=== PATIENT | female | born 1935 | race African-American/Black ===

== ENCOUNTER 2016-06-27 12:19 | Emergency (ER) | payer MEDICARE, OTHER ==
[~2016-06-27] VITALS: Ht 165.1 cm; Wt 60.0 kg
[~2016-06-27 12:19] MED LIST: DONE10TA14 PO; KCL20 PO; LASI20TA PO; LORTA5 PO
[2016-06-27 12:31] VITALS: BP 135/65; PULSE 95; RESP 18; TEMP 99.3; O2SAT 100
[2016-06-27 12:39] VITALS: RESP 18; O2SAT 100
--- NOTE | 2016-06-27 12:40 | PD ---
HPI Chief Complaint: Altered Mental Status Time Seen by Provider: 12:39 Travel History International Travel<30 days: No Contact w/Intl Traveler<30days: No Traveled to known affect area: No History of Present Illness HPI 80-year-old female with history of dementia isn't emergency department by [facility] for evaluation of altered mental status. Patient resides with a roommate who became concerned when the patient was unable to ambulate today. Patient is a poor historian. Tells me that her legs hurt. Denies any other pain. Denies being recently ill. I do not have any source of information here in the emergency department at this time, there for history of present illness. Limited. 1630 patient's family is at bedside. They tell me that the patient has history of dementia and she is at her baseline. He told me over the last week she had seemed more confused and they went to her primary care provider 2 days ago when she was diagnosed with a UTI and started on Cipro. She has only had 1 dose this. The tell me that she always has leg pain. She has had one hip replacement and was supposed to have another but it never happened. They tell me that she never ambulates without assistance. They tell me that her lower extremities are typically swollen and this is not new for her either. 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 ABDOMINAL MASS) Gynecologic Surgery: Yes (HYSTERECTOMY) Other Surgery: Yes Social History Alcohol Use: No Tobacco Use: No Substance Use: No Allergies-Medications (Allergen,Severity, Reaction): Coded Allergies: No Known Allergies (Unverified , 06/27/16) Reported Meds & Prescriptions Reported Meds & Active Scripts Active Kcl 20 Meq Tab (Potassium Chloride) 20 Meq Tabcr 20 Meq PO DAILY 30 Days Lasix (Furosemide) 20 Mg Tab 1 Tab PO DAILY [place] 5/325 (Hydrocodone/Acetaminophen 5/325) 5 mg/325 mg Tab 1 Tab PO Q6H PRN Reported Donepezil 10 mg 10 Mg Tab 1 Tab PO DAILY Review of Systems ROS Limitations: Poor Historian Except as stated in HPI: all other systems reviewed are Neg Physical Exam Narrative GENERAL: Pleasant, well-nourished elderly female patient, sitting in bed in no acute distress. SKIN: Warm and dry. HEAD: Atraumatic. Normocephalic. EYES: Pupils equal and round. No scleral icterus. No injection or drainage. ENT: No nasal bleeding or discharge. Mucous membranes pink and moist. NECK: Trachea midline. No JVD. CARDIOVASCULAR: Elevated rate and rhythm. No murmur appreciated. RESPIRATORY: No accessory muscle use. Clear to auscultation. Breath sounds equal bilaterally. GASTROINTESTINAL: Abdomen soft, non-tender, nondistended. Hepatic and splenic margins not palpable. MUSCULOSKELETAL: No obvious deformities. No clubbing. No cyanosis. 2+ lower extremity edema bilateral NEUROLOGICAL: Awake and alert. Oriented to self and place. No obvious cranial nerve deficits. Motor grossly within normal limits. Patient is not wearing her dentures and it is difficult to understand everything she is saying. Data Data Last Documented VS Vital Signs Date Time Temp Pulse Resp B/P Pulse Ox O2 Delivery O2 Flow Rate FiO2 06/27/16 16:13 83 16 130/63 99 Room Air 06/27/16 12:31 99.3 Orders Electrocardiogram (06/27/16 12:33) Complete Blood Count With Diff (06/27/16 12:33) Comprehensive Metabolic Panel (06/27/16 12:33) Prothrombin Time / Inr (Pt) (06/27/16 12:33) Act Partial Throm Time (Ptt) (06/27/16 12:33) Lactic Acid Sepsis Protocol (06/27/16 12:33) Magnesium (Mg) (06/27/16 12:33) Ckmb (Isoenzyme) Profile (06/27/16 12:33) Troponin I (06/27/16 12:33) Urinalysis - C+S If Indicated (06/27/16 12:33) Influenzae A/B Antigen (06/27/16 12:33) Blood Culture (06/27/16 12:33) Chest, Single Ap (06/27/16 12:33) Blood Glucose (06/27/16 12:33) Ecg Monitoring (06/27/16 12:33) Iv Access Insert/Monitor (06/27/16 12:33) Oximetry (06/27/16 12:33) Oxygen Administration (06/27/16 12:33) Ct Brain W/O Iv Contrast(Rout) (06/27/16 12:33) B-Type Natriuretic Peptide (06/27/16 12:33) CKMB (06/27/16 12:35) CKMB% (06/27/16 12:35) Cath For Specimen (06/27/16 14:32) Ceftriaxone Inj (Rocephin Inj) (06/27/16 14:45) Sodium Chlorid 0.9% 500 Ml Inj (Ns 500 M (06/27/16 14:45) Urine Culture (06/27/16 14:50) Labs Laboratory Tests Test 06/27/16 06/27/16 12:35 14:50 White Blood Count 10.4 TH/MM3 Red Blood Count 3.75 MIL/MM3 Hemoglobin 11.9 GM/DL Hematocrit 35.6 % Mean Corpuscular Volume 95.1 FL Mean Corpuscular Hemoglobin 31.7 PG Mean Corpuscular Hemoglobin 33.3 % Concent Red Cell Distribution Width 14.3 % Platelet Count 179 TH/MM3 Mean Platelet Volume 8.1 FL Neutrophils (%) (Auto) 88.4 % Lymphocytes (%) (Auto) 4.0 % Monocytes (%) (Auto) 7.2 % Eosinophils (%) (Auto) 0.1 % Basophils (%) (Auto) 0.3 % Neutrophils # (Auto) 9.2 TH/MM3 Lymphocytes # (Auto) 0.4 TH/MM3 Monocytes # (Auto) 0.8 TH/MM3 Eosinophils # (Auto) 0.0 TH/MM3 Basophils # (Auto) 0.0 TH/MM3 CBC Comment DIFF FINAL Differential Comment Prothrombin Time 12.0 SEC Prothromb Time International 1.1 RATIO Ratio Activated Partial 23.9 SEC Thromboplast Time Sodium Level 136 MEQ/L Potassium Level 3.5 MEQ/L Chloride Level 101 MEQ/L Carbon Dioxide Level 24.5 MEQ/L Anion Gap 11 MEQ/L Blood Urea Nitrogen 16 MG/DL Creatinine 0.56 MG/DL Estimat Glomerular Filtration 126 ML/MIN Rate Random Glucose 148 MG/DL Lactic Acid Level 1.2 mmol/L Calcium Level 9.1 MG/DL Magnesium Level 2.1 MG/DL Total Bilirubin 0.7 MG/DL Aspartate Amino Transf 20 U/L (AST/SGOT) Alanine Aminotransferase 25 U/L (ALT/SGPT) Alkaline Phosphatase 90 U/L Total Creatine Kinase 251 U/L Creatine Kinase MB 1.0 NG/ML Creatine Kinase MB % 0.4 % Troponin I LESS THAN 0.02 NG/ML B-Type Natriuretic Peptide 26 PG/ML Total Protein 8.2 GM/DL Albumin 4.1 GM/DL Urine Color YELLOW Urine Turbidity CLEAR Urine pH 5.5 Urine Specific [place] 1.020 Urine Protein TRACE mg/dL Urine Glucose (UA) NEG mg/dL Urine Ketones 10 mg/dL Urine Occult Blood SMALL Urine Nitrite NEG Urine Bilirubin NEG Urine Urobilinogen LESS THAN 2.0 MG/DL Urine Leukocyte Esterase TRACE Urine RBC 6 /hpf Urine WBC 3 /hpf Urine Squamous Epithelial <1 /hpf Cells Urine Bacteria RARE /hpf Urine Mucus MOD /lpf Microscopic Urinalysis Comment CATH-CULTURE IND MDM Medical Decision Making Medical Screen Exam Complete: Yes Emergency Medical Condition: Yes Medical Record Reviewed: Yes Differential Diagnosis Dementia versus UTI versus urosepsis versus electrolyte abnormality Narrative Course 80-year-old female presents to the emergency department for evaluation. Patient appears without distress. Her vital signs are stable. She is afebrile. CT imaging of the brain shows left maxillary sinus disease and no intracranial abnormality. Chest x-rays without acute cardiopulmonary disease. CBC is without leukocytosis but there is slight neutrophilia of 9.2. CMP is without acute concern. Lactic acid 1.2. BNP is 26. Troponins less than 0.02. After family arrived at bedside and I was unable to better put together the patient's history, patient is given IV antibiotics for UTI. I discussed with attending physician Dr. Randall who agrees the patient can be discharged home if she is her typical baseline and her family's willing to take her home. I discussed this with family and they're concerned that she will not take her medication as the pills are large. I have suggested different ways of administrating and they're willing to try this. They agree to return immediately with any acute worsening of symptoms. Diagnosis Primary Impression: Altered mental status Qualified Code: R41.82 - Altered mental status, unspecified altered mental status type Additional Impressions: UTI (urinary tract infection) Qualified Code: N39.0 - Urinary tract infection without hematuria, site unspecified Dementia Qualified Code: F03.90 - Dementia without behavioral disturbance, unspecified dementia type Referrals: Primary Care Physician Patient Instructions: General Instructions, Urinary Tract Infection in Women ( ED) Additional Instructions: Follow up with your primary care provider Continue antibiotics as directed. Take until they are all gone Return to ED with acute worsening of symptoms Med/Other Pt SpecificInfo: No Change to Meds Disposition: 01 DISCHARGE HOME Condition: Stable Sapna Martini Jun 27, 2016 12:39
--- NOTE | 2016-06-27 13:07 | RADRPT ---
EXAM DATE/TIME: 06/27/2016 12:51 [facility] COMPARISON: CT BRAIN W/O CONTRAST, January 06, 2014, 13:21. INDICATIONS : Altered mental status and unsteady gait today. RADIATION DOSE: 32.66 CTDIvol (mGy) MEDICAL HISTORY : Non-responsive. SURGICAL HISTORY : Hysterectomy. ENCOUNTER: Initial ACUITY: 1 day PAIN SCALE: 0/10 LOCATION: cranial TECHNIQUE: Multiple contiguous axial images were obtained of the head. Using automated exposure control and adj ustment of the mA and/or kV according to patient size, radiation dose was kept as low as reasonably a chievable to obtain optimal diagnostic quality images. FINDINGS: CEREBRUM: The ventricles are normal for age. No evidence of midline shift, mass lesion, hemorrhage or acute in farction. No extra-axial fluid collections are seen. POSTERIOR FOSSA: The cerebellum and brainstem are intact. The 4th ventricle is midline. The cerebellopontine angle i s unremarkable. EXTRACRANIAL: The visualized portion of the orbits is intact. There is a bubbly air-fluid level seen within the lef t maxillary sinus consistent with acute infection. SKULL: The calvaria is intact. No evidence of skull fracture. CONCLUSION: Left maxillary sinus disease consistent with acute infection. No intracranial abnormality seen. Vickie Auguste MD on June 27, 2016 at 13:04 Board Certified Radiologist. This report was verified electronically.
--- NOTE | 2016-06-27 13:16 | RADRPT ---
EXAM DATE/TIME: 06/27/2016 13:00 [facility] COMPARISON: CHEST SINGLE AP, March 13, 2015, 12:43. INDICATIONS : AMS. Shortness of breath. MEDICAL HISTORY : None. SURGICAL HISTORY : None. ENCOUNTER: Initial ACUITY: 1 day PAIN SCORE: 0/10 LOCATION: chest FINDINGS: A single view of the chest demonstrates the lungs to be symmetrically aerated without evidence of mas s, infiltrate or effusion. The cardiomediastinal contours are unremarkable. Osseous structures are osteopenic but intact. CONCLUSION: No acute disease. Vickie Auguste MD on June 27, 2016 at 13:14 Board Certified Radiologist. This report was verified electronically.
[2016-06-27 13:18] LABS: AUTOMATED NEUTROPHIL # 9.2 TH/MM3 (1.8-7.7); BASOPHIL % 0.3 % (0.0-2.0); EOSINOPHIL % 0.1 % (0.0-4.0); HEMATOCRIT 35.6 % (35.0-46.0); HEMO FLAGS DIFF FINAL; LYMPHOCYTE # 0.4 TH/MM3 (1.0-4.8); MEAN CELL VOLUME 95.1 FL (80.0-100.0); MEAN CORPUSCULAR HEMOGLOBIN 31.7 PG (27.0-34.0); MEAN CORPUSCULAR HGB CONC 33.3 % (32.0-36.0); MONO % 7.2 % (0.0-8.0); NEUT % 88.4 % (16.0-70.0); PLATELET COUNT 179 TH/MM3 (150-450); RED BLOOD COUNT 3.75 MIL/MM3 (4.00-5.30); RED CELL DISTRIBUTION WIDTH 14.3 % (11.6-17.2); WHITE BLOOD COUNT 10.4 TH/MM3 (4.0-11.0)
[2016-06-27 13:29] LABS: APTT (PATIENT) 23.9 SEC (24.3-30.1); INTERNATIONAL NORMALIZED RATIO 1.1 RATIO
[2016-06-27 13:45] LABS: ANION GAP 11 MEQ/L (5-15); AST (GOT) 20 U/L (15-37); BICARBONATE 24.5 MEQ/L (21.0-32.0); BLOOD UREA NITROGEN 16 MG/DL (7-18); CHLORIDE 101 MEQ/L (98-107); GLOMERULAR FILTRATION RATE 126 ML/MIN (>89); MAGNESIUM 2.1 MG/DL (1.5-2.5); POTASSIUM 3.5 MEQ/L (3.5-5.1); SODIUM (NA) 136 MEQ/L (136-145)
[2016-06-27 13:49] LABS: ALKALINE PHOSPHATASE 90 U/L (45-117); ALT (GPT) 25 U/L (10-53); CREATINE KINASE 251 U/L (26-192); TOTAL BILIRUBIN ADULT 0.7 MG/DL (0.2-1.0)
[2016-06-27] MEDS ORDERED: cefTRIAXone INJ 1,000 MG in SODIUM CHLORIDE 0.9% INJ 100 ML IV ONE (14:45)
[2016-06-27] MEDS ORDERED: SODIUM CHLORID 0.9% 500 ML INJ 500 ML IV ONE (14:45)
[2016-06-27 15:37] LABS: BACTERIA, URINE RARE /hpf; BLOOD, URINE SMALL (NEG); GLUCOSE,URINE NEG (NEG); KETONE, URINE 10 mg/dL (NEG); MUCUS URINE MOD /lpf (OCC); NITRITE,URINE NEG (NEG); PH, URINE 5.5 (5.0-8.5); SQUAMOUS EPITHELIAL CELL URINE <1 /hpf (0-5); URINE COLOR YELLOW (YELLW/STRAW)
[2016-06-27 15:38] LABS: COMMENT (UR) CATH-CULTURE IND; CULTURE IF INDICATED CATH CULTURE IND
[2016-06-27 16:13] VITALS: BP 130/63; PULSE 83; RESP 16; O2SAT 99
--- NOTE | 2016-06-28 15:11 | EKG ---
Date Performed: 06/27/2016 Time Performed: 12:41:23 PTAGE: 80 years EKG: Sinus rhythm Since previous tracing, no significant change noted NORMAL ECG PREVIOUS TRACING : 01/06/14 12.56.24 DOCTOR: Huber Lucas Interpretating Date/Time 06/28/2016 15:11:33
== END 2016-06-27 17:41 | disposition home or self-care (01) ==
LOC: NEPC 12:19
DX: N39.0 Urinary tract infection, site not specified (principal); R41.82 Altered mental status, unspecified; F03.90 Unspecified dementia, unspecified severity, without behavioral disturbance, psychotic disturbance, mood disturbance, and anxiety; M79.604 Pain in right leg; M79.605 Pain in left leg; R60.0 Localized edema
CPT/HCPCS: 70450; 71010; 80053; 81001; 82550; 82552; 83605; 83735; 83880; 84484; 85025; 85610; 85730; 87040; 87086; 87804; 93005; 96365; 96366; 99285; J0696; J7040; P9612

== ENCOUNTER 2016-07-06 12:37 | Inpatient (IN) | payer OTHER, MEDICARE ==
[2016-07-06] VITALS (8 sets, daily range): BP systolic 113–159; BP diastolic 53–83; PULSE 73–95; RESP 14–19; TEMP 96–99.6; O2SAT 96–100
--- NOTE | 2016-07-06 13:43 | PD ---
HPI Chief Complaint: Musculoskeletal Complaint Time Seen by Provider: 13:20 Travel History International Travel<30 days: No Contact w/Intl Traveler<30days: No History of Present Illness HPI Patient is an 80-year-old female brought in by EMS for evaluation of left lower leg deformity after patient was found on the floor in her home. EMS states the family heard her fall at approximately 11:30 12:00 this morning. Patient does not ambulate on her own normally. She was found sitting on the side of the bed upright, her left lower leg has a deformity at the ankle. Patient has a history of dementia and is a poor historian, family is not present currently. Information obtained from EMS. 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 ABDOMINAL MASS) Gynecologic Surgery: Yes (HYSTERECTOMY) Other Surgery: Yes Social History Alcohol Use: No Tobacco Use: No Substance Use: No Allergies-Medications (Allergen,Severity, Reaction): Coded Allergies: No Known Allergies (Unverified , 07/06/16) Reported Meds & Prescriptions Reported Meds & Active Scripts Active Kcl 20 Meq Tab (Potassium Chloride) 20 Meq Tabcr 20 Meq PO DAILY 30 Days Lasix (Furosemide) 20 Mg Tab 1 Tab PO DAILY [place] 5-325 mg (Hydrocodone-Acetaminophen 5-325 mg) 5 mg/325 mg Tab 1 Tab PO Q6H PRN Reported Donepezil 10 mg 10 Mg Tab 1 Tab PO DAILY Review of Systems ROS Limitations: Poor Historian Except as stated in HPI: all other systems reviewed are Neg Musculoskeletal: Positive: Pain (left lower leg) Physical Exam Narrative GENERAL: Well-developed, well-nourished, elderly female. She comfortably in no acute distress. SKIN: Focused skin assessment warm/dry. HEAD: Atraumatic. Normocephalic. EYES: Pupils equal and round. No scleral icterus. No injection or drainage. ENT: No nasal bleeding or discharge. Mucous membranes pink and moist. NECK: Trachea midline. No JVD. CARDIOVASCULAR: Regular rate and rhythm. No murmur appreciated. RESPIRATORY: No accessory muscle use. Clear to auscultation. Breath sounds diminished in bases. GASTROINTESTINAL: Abdomen soft, non-tender, nondistended. Hepatic and splenic margins not palpable. MUSCULOSKELETAL: Obvious deformity to left lower leg just proximal to the ankle and a positive pedal pulse, 2+ edema in the left foot. NEUROLOGICAL: Awake and alert to self. No obvious cranial nerve deficits, Baseline dementia. Motor grossly within normal limits. Normal speech. PSYCHIATRIC: Appropriate mood and affect; insight and judgment impaired. Data Data Last Documented VS Vital Signs Date Time Temp Pulse Resp B/P Pulse Ox O2 Delivery O2 Flow Rate FiO2 07/06/16 14:01 92 16 157/83 98 07/06/16 14:01 99.6 07/06/16 14:01 Room Air Orders Ankle, Complete ([id number]) (07/06/16 ) Tibia/Fibula (Ap/Lat) (07/06/16 ) Complete Blood Count With Diff (07/06/16 13:25) Comprehensive Metabolic Panel (07/06/16 13:25) Prothrombin Time / Inr (Pt) (07/06/16 13:25) Act Partial Throm Time (Ptt) (07/06/16 13:25) Lactic Acid Sepsis Protocol (07/06/16 13:25) Urinalysis - C+S If Indicated (07/06/16 13:25) Iv Access Insert/Monitor (07/06/16 13:25) Windows Consultant / Telemetry CHINO.Q8H (07/06/16 13:25) Oximetry (07/06/16 13:25) Ondansetron Inj (Zofran Inj) (07/06/16 14:45) Morphine Inj (Morphine Inj) (07/06/16 14:45) Tibia/Fibula (Ap/Lat) (07/06/16 ) Consult Orthopedic (07/06/16 ) Diet Npo (07/07/16 Breakfast) Fiberglass Short Leg Splint Ad (07/06/16 ) Fiberglass Sugartong Sp Ad Sl (07/06/16 ) Ice Cuff (07/06/16 ) Admit Order (Ed Use Only) (07/06/16 15:29) Labs Laboratory Tests Test 07/06/16 13:45 White Blood Count 7.9 TH/MM3 Red Blood Count 3.73 MIL/MM3 Hemoglobin 11.8 GM/DL Hematocrit 35.0 % Mean Corpuscular Volume 93.8 FL Mean Corpuscular Hemoglobin 31.5 PG Mean Corpuscular Hemoglobin 33.6 % Concent Red Cell Distribution Width 14.5 % Platelet Count 240 TH/MM3 Mean Platelet Volume 8.5 FL Neutrophils (%) (Auto) 89.3 % Lymphocytes (%) (Auto) 4.3 % Monocytes (%) (Auto) 5.9 % Eosinophils (%) (Auto) 0.1 % Basophils (%) (Auto) 0.4 % Neutrophils # (Auto) 7.1 TH/MM3 Lymphocytes # (Auto) 0.3 TH/MM3 Monocytes # (Auto) 0.5 TH/MM3 Eosinophils # (Auto) 0.0 TH/MM3 Basophils # (Auto) 0.0 TH/MM3 CBC Comment DIFF FINAL Differential Comment Prothrombin Time 11.6 SEC Prothromb Time International 1.0 RATIO Ratio Activated Partial 20.1 SEC Thromboplast Time Sodium Level 140 MEQ/L Potassium Level 5.4 MEQ/L Chloride Level 103 MEQ/L Carbon Dioxide Level 28.8 MEQ/L Anion Gap 8 MEQ/L Blood Urea Nitrogen 16 MG/DL Creatinine 0.71 MG/DL Estimat Glomerular Filtration 96 ML/MIN Rate Random Glucose 129 MG/DL Lactic Acid Level 1.9 mmol/L Calcium Level 9.1 MG/DL Total Bilirubin 0.5 MG/DL Aspartate Amino Transf 32 U/L (AST/SGOT) Alanine Aminotransferase 24 U/L (ALT/SGPT) Alkaline Phosphatase 78 U/L Total Protein 8.1 GM/DL Albumin 4.0 GM/DL MDM Medical Decision Making Medical Screen Exam Complete: Yes Emergency Medical Condition: Yes Interpretation(s) Vital Signs Date Time Temp Pulse Resp B/P Pulse Ox O2 Delivery O2 Flow Rate FiO2 07/06/16 14:01 92 16 157/83 98 07/06/16 14:01 99.6 92 16 157/83 98 07/06/16 14:01 98 Room Air 07/06/16 13:57 99.6 92 16 157/83 98 Differential Diagnosis Fracture versus UTI versus sepsis versus other Narrative Course Patient is an 80-year-old female presenting to the emergency room for evaluation of a deformity to the left lower leg. Patient had a mechanical fall at home, per EMS report family was there and patient was found sitting on the side of the bed upright. Patient is alert and oriented to self. Dementia at baseline. Patient's vital signs are stable, there is an obvious deformity to left lower extremity, he is neurovascularly intact at this time. Imaging ordered and pending. X-ray of the left ankle shows a distal tib-fib fracture. Mazin LINO for Dr. Sinha return page, he recommended patient be admitted to medicine, be kept nothing by mouth after midnight for OR tomorrow. He stated they would round early in the morning and he needed an up-to-date family contact number to obtain consent for the surgical procedure tomorrow. [facility] placed splint on left lower extremity with the help of my attending physician, please see alternate provider note. [facility] paged for admission Dr. Aguilar accepted admission. Diagnosis Primary Impression: Tibia/fibula fracture Qualified Code: S82.202A - Tibia/fibula fracture, left, closed, initial encounter Additional Impression: Dementia Qualified Code: F03.90 - Dementia without behavioral disturbance, unspecified dementia type Admitting Information Admitting Physician Requests: Admit Condition: Stable Coni Zavaleta [facility] Jul 06, 2016 13:43
[2016-07-06 14:07] LABS: AUTOMATED NEUTROPHIL # 7.1 TH/MM3 (1.8-7.7); BASOPHIL % 0.4 % (0.0-2.0); EOSINOPHIL % 0.1 % (0.0-4.0); HEMO FLAGS DIFF FINAL; LYMPH % 4.3 % (9.0-44.0); LYMPHOCYTE # 0.3 TH/MM3 (1.0-4.8); MEAN CELL VOLUME 93.8 FL (80.0-100.0); MEAN CORPUSCULAR HEMOGLOBIN 31.5 PG (27.0-34.0); MEAN CORPUSCULAR HGB CONC 33.6 % (32.0-36.0); MONO % 5.9 % (0.0-8.0); NEUT % 89.3 % (16.0-70.0); PLATELET COUNT 240 TH/MM3 (150-450); RED BLOOD COUNT 3.73 MIL/MM3 (4.00-5.30); RED CELL DISTRIBUTION WIDTH 14.5 % (11.6-17.2); WHITE BLOOD COUNT 7.9 TH/MM3 (4.0-11.0)
[2016-07-06 14:24] LABS: PROTHROMBIN TIME - PATIENT 11.6 SEC (9.8-11.6)
[2016-07-06 14:25] LABS: APTT (PATIENT) 20.1 SEC (24.3-30.1)
[2016-07-06 14:26] LABS: ALKALINE PHOSPHATASE 78 U/L (45-117); TOTAL BILIRUBIN ADULT 0.5 MG/DL (0.2-1.0)
[2016-07-06 14:31] LABS: ALT (GPT) 24 U/L (10-53); ANION GAP 8 MEQ/L (5-15); AST (GOT) 32 U/L (15-37); BICARBONATE 28.8 MEQ/L (21.0-32.0); BLOOD UREA NITROGEN 16 MG/DL (7-18); CHLORIDE 103 MEQ/L (98-107); GLOMERULAR FILTRATION RATE 96 ML/MIN (>89); POTASSIUM 5.4 MEQ/L (3.5-5.1); SODIUM (NA) 140 MEQ/L (136-145)
[2016-07-06] MEDS ORDERED: ONDANSETRON HCL 4 MG/2 ML VIAL IV ONE (14:45)
[2016-07-06] MEDS ORDERED: MORPHINE SULFATE 4 MG/ML INJ IV PUSH ONE (14:45)
--- NOTE | 2016-07-06 14:56 | PD ---
Data Data Last Documented VS Vital Signs Date Time Temp Pulse Resp B/P Pulse Ox O2 Delivery O2 Flow Rate FiO2 07/06/16 14:01 92 16 157/83 98 07/06/16 14:01 99.6 07/06/16 14:01 Room Air Orders Ankle, Complete ([id number]) (07/06/16 ) Tibia/Fibula (Ap/Lat) (07/06/16 ) Complete Blood Count With Diff (07/06/16 13:25) Comprehensive Metabolic Panel (07/06/16 13:25) Prothrombin Time / Inr (Pt) (07/06/16 13:25) Act Partial Throm Time (Ptt) (07/06/16 13:25) Lactic Acid Sepsis Protocol (07/06/16 13:25) Urinalysis - C+S If Indicated (07/06/16 13:25) Iv Access Insert/Monitor (07/06/16 13:25) Senior Ruby Developer / Telemetry CHINO.Q8H (07/06/16 13:25) Oximetry (07/06/16 13:25) Ondansetron Inj (Zofran Inj) (07/06/16 14:45) Morphine Inj (Morphine Inj) (07/06/16 14:45) Tibia/Fibula (Ap/Lat) (07/06/16 ) Consult Orthopedic (07/06/16 ) Diet Npo (07/07/16 Breakfast) Fiberglass Short Leg Splint Ad (07/06/16 ) Fiberglass Sugartong Sp Ad Sl (07/06/16 ) Ice Cuff (07/06/16 ) Admit Order (Ed Use Only) (07/06/16 15:29) Labs Laboratory Tests Test 07/06/16 13:45 White Blood Count 7.9 TH/MM3 Red Blood Count 3.73 MIL/MM3 Hemoglobin 11.8 GM/DL Hematocrit 35.0 % Mean Corpuscular Volume 93.8 FL Mean Corpuscular Hemoglobin 31.5 PG Mean Corpuscular Hemoglobin 33.6 % Concent Red Cell Distribution Width 14.5 % Platelet Count 240 TH/MM3 Mean Platelet Volume 8.5 FL Neutrophils (%) (Auto) 89.3 % Lymphocytes (%) (Auto) 4.3 % Monocytes (%) (Auto) 5.9 % Eosinophils (%) (Auto) 0.1 % Basophils (%) (Auto) 0.4 % Neutrophils # (Auto) 7.1 TH/MM3 Lymphocytes # (Auto) 0.3 TH/MM3 Monocytes # (Auto) 0.5 TH/MM3 Eosinophils # (Auto) 0.0 TH/MM3 Basophils # (Auto) 0.0 TH/MM3 CBC Comment DIFF FINAL Differential Comment Prothrombin Time 11.6 SEC Prothromb Time International 1.0 RATIO Ratio Activated Partial 20.1 SEC Thromboplast Time Sodium Level 140 MEQ/L Potassium Level 5.4 MEQ/L Chloride Level 103 MEQ/L Carbon Dioxide Level 28.8 MEQ/L Anion Gap 8 MEQ/L Blood Urea Nitrogen 16 MG/DL Creatinine 0.71 MG/DL Estimat Glomerular Filtration 96 ML/MIN Rate Random Glucose 129 MG/DL Lactic Acid Level 1.9 mmol/L Calcium Level 9.1 MG/DL Total Bilirubin 0.5 MG/DL Aspartate Amino Transf 32 U/L (AST/SGOT) Alanine Aminotransferase 24 U/L (ALT/SGPT) Alkaline Phosphatase 78 U/L Total Protein 8.1 GM/DL Albumin 4.0 GM/DL MDM Supervised Visit with SHAYNE: Yes Procedures Procedure Narrative This is a note to document fracture reduction. This patient has a fracture of the left distal tibia and fibula. They are displaced and angulated. I discussed the procedure with the patient and she provides verbal consent. I gave her injection of morphine and Zofran She did not require formal conscious sedation After the medication was given, I applied steady distal traction to the foot and lower tibia. An conventions assistant helped stabilize the proximal tibia. I straightened out the tibia as best as possible Afterwards patient had excellent pulse and sensation and cap refill Procedure was tolerated well Placed her in a combination sugar tong and posterior short-leg splint Ordering a post reduction film I have reviewed the films. Maybe some minor improvement but not a whole lot of movement It has been stabilized in a splint and will be admitted for operative repair tomorrow morning Esau Kwok MD Jul 06, 2016 14:56
--- NOTE | 2016-07-06 15:37 | RADRPT ---
EXAM DATE/TIME: 07/06/2016 14:11 [facility] COMPARISON: No previous studies available for comparison. INDICATIONS : Fell today. MEDICAL HISTORY : None. SURGICAL HISTORY : None. ENCOUNTER: Initial ACUITY: 1 day PAIN SCORE: Non-responsive. LOCATION: Left tib/fib FINDINGS: There is a fracture of the distal tibia and fibula with moderate angulation. There is also a fractur e of the proximal fibula as well. Bones are diffusely osteoporotic. CONCLUSION: 1. Fractures as described above. 2. Bones are diffusely osteoporotic. Devan Soares MD FACR on July 06, 2016 at 15:31 Board Certified Radiologist. This report was verified electronically.
--- NOTE | 2016-07-06 15:49 | RADRPT ---
EXAM DATE/TIME: 07/06/2016 14:12 [facility] COMPARISON: No previous studies available for comparison. INDICATIONS : Fell today. MEDICAL HISTORY : None. SURGICAL HISTORY : None. ENCOUNTER: Initial ACUITY: 1 day PAIN SCORE: Non-responsive. LOCATION: Left ankle FINDINGS: Again seen is the fracture of the distal tibia and fibula. Bones are diffusely osteoporotic. Alignment is anatomic across the ankle. CONCLUSION: 1. Osteoporotic. 2. Fractures of the distal tibia and fibula. Devan Soares MD FACR on July 06, 2016 at 15:36 Board Certified Radiologist. This report was verified electronically.
--- NOTE | 2016-07-06 16:00 | RADRPT ---
EXAM DATE/TIME: 07/06/2016 15:24 [facility] COMPARISON: TIBIA/FIBULA LEFT (AP/LAT), July 06, 2016, 14:11. FEMUR LEFT (AP & LAT/2VWS), March 13, 2015, 12 :45. INDICATIONS : Post reduction. MEDICAL HISTORY : None. SURGICAL HISTORY : None. ENCOUNTER: Initial ACUITY: 1 day PAIN SCORE: Non-responsive. LOCATION: Left tib/fib FINDINGS: There has been interval casting of the left ankle. There is persistent mild angulation of the distal tibial and fibular fracture sites. Stable slight displacement at the proximal fibular fracture site w hich is above the level of the cast. CONCLUSION: Interval casting of tib-fib fractures Julio Cesar Rodriguez MD on July 06, 2016 at 15:54 Board Certified Radiologist. This report was verified electronically.
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
[2016-07-06 16:54] LABS: BACTERIA, URINE RARE /hpf; BLOOD, URINE NEG (NEG); GLUCOSE,URINE NEG (NEG); KETONE, URINE TRACE mg/dL (NEG); MUCUS URINE FEW /lpf (OCC); NITRITE,URINE NEG (NEG); PH, URINE 5.5 (5.0-8.5); SQUAMOUS EPITHELIAL CELL URINE <1 /hpf (0-5); URINE COLOR YELLOW (YELLW/STRAW)
[2016-07-06 16:56] LABS: COMMENT (UR) CATH-CULTURE IND; CULTURE IF INDICATED CATH CULTURE IND
[2016-07-06] MEDS ORDERED: ACETAMINOPHEN/HYDROcodone 325 MG/10 MG TAB PO PRN (17:00)
[2016-07-06] MEDS: SODIUM CHLOR 0.9% 1000 ML INJ 1,000 ML IV SCH (17:00)
[2016-07-06] MEDS ORDERED: ACETAMINOPHEN/HYDROcodone 325 MG/5 MG TAB PO PRN (17:00)
[2016-07-06] MEDS ORDERED: MORPHINE SULFATE 4 MG/ML INJ IV PUSH PRN (17:00)
[2016-07-06] MEDS ORDERED: NALOXONE HCL 0.4 MG/ML AMP IV PRN (17:15)
[2016-07-06] MEDS ORDERED: ONDANSETRON HCL 4 MG/2 ML VIAL IVP PRN (17:15)
[2016-07-06] MEDS ORDERED: SODIUM CHLORIDE 0.9% FLUSH 10 ML FLUSH IV FLUSH PRN (17:15)
[2016-07-06] MEDS ORDERED: INSULIN HUMAN REGULAR 1,000 UNITS/10 ML VIAL SQ PRN (23:45)
[2016-07-06] MEDS ORDERED: CHLORHEXIDINE GLUCONATE 2 % 1 PACK (2 CLOTHS) TOPICAL PRN (23:45)
[2016-07-06] MEDS ORDERED: SODIUM CHLORID 0.9% 500 ML IV PRN (23:45)
[2016-07-06] MEDS: LACTATED RINGER'S 1000 ML INJ 1,000 ML IV SCH (23:45)
[2016-07-06] MEDS ORDERED: POVIDONE IODINE 5% (ANTISEPSIS KIT) 4 APPLICATIONS EACH NARE PRN (23:45)
[2016-07-06] MEDS ORDERED: METOPROLOL TARTRATE 25 MG TAB PO PRN (23:45)
[2016-07-07] MEDS: SODIUM CHLOR 0.9% 1000 ML INJ 1,000 ML IV SCH ×2 (06:20→19:40)
[2016-07-07 06:45] VITALS: BP 154/78; PULSE 97; RESP 18; TEMP 98.8; O2SAT 99
--- NOTE | 2016-07-07 06:54 | PD.ORT.PN ---
Subjective Subjective Remarks Fall at home. Fracture of left distal tibia and fibula shaft Objective Vitals Vital Signs Date Time Temp Pulse Resp B/P Pulse Ox O2 Delivery O2 Flow Rate FiO2 07/06/16 23:50 96.0 74 19 123/70 98 07/06/16 20:45 96.1 94 16 147/78 98 07/06/16 20:00 98.9 76 16 159/74 96 07/06/16 17:38 99.4 79 16 126/58 98 07/06/16 16:15 99.6 84 14 121/58 97 Room Air 07/06/16 15:46 95 15 157/78 100 Nasal Cannula 2 07/06/16 14:01 92 16 157/83 98 07/06/16 14:01 99.6 92 16 157/83 98 07/06/16 14:01 98 Room Air 07/06/16 13:57 99.6 92 16 157/83 98 Result Diagram: 07/06/16 1345 07/06/16 1345 Other Results Laboratory Tests Test 07/06/16 13:45 Prothrombin Time 11.6 SEC (9.8-11.6) Prothromb Time International 1.0 RATIO Ratio Imaging Last 72 hours Impressions Tibia/Fibula X-Ray 07/06/16 0000 Signed Impressions: Service Date/Time: Wednesday, July 06, 2016 15:24 - CONCLUSION: Interval casting of tib-fib fractures Julio Cesar Rodriguez MD Tibia/Fibula X-Ray 07/06/16 0000 Signed Impressions: Service Date/Time: Wednesday, July 06, 2016 14:11 - CONCLUSION: 1. Fractures as described above. 2. Bones are diffusely osteoporotic. Devan Soares MD FACR Ankle X-Ray 07/06/16 0000 Signed Impressions: Service Date/Time: Wednesday, July 06, 2016 14:12 - CONCLUSION: 1. Osteoporotic. 2. Fractures of the distal tibia and fibula. Devan Soares MD FACR Objective Remarks Bilateral upper extremity is: Full range of motion neurovascularly intact Right lower extremity: Full range of motion neurovascularly intact Left lower extremity: No pain with hip or knee motion. Intact sensation distally in all toes. Splint intact with ice cuff Assessment & Plan Assessment and Plan Left distal tibia and fibula shaft fractures Nothing by mouth Plan for surgery today for open reduction internal fixation versus intramedullary nail fixation Nonweightbearing and maintain elevation Sign consents Jovanny Galeana Jr. Jul 07, 2016 06:54
[2016-07-07] MEDS ORDERED: GENTAMICIN SULFATE 80 MG/2 ML VIAL ONE (07:01)
[2016-07-07] MEDS ORDERED: MINERAL OIL 10 ML VIAL ONE (07:02)
[2016-07-07 08:00] VITALS: BP 151/79; PULSE 96; RESP 18; TEMP 100; O2SAT 99
[2016-07-07] MEDS ORDERED: VANCOMYCIN HCL 1000 MG VIAL ONE (08:51)
[2016-07-07] MEDS ORDERED: ceFAZolin INJ 1,000 MG VIAL ONE (08:51)
[2016-07-07] MEDS: SODIUM CHLORIDE 0.9% FLUSH 10 ML FLUSH IV FLUSH SCH ×2 (09:00→21:00)
[2016-07-07 09:07] LABS: BICARBONATE 29.4 MEQ/L (21.0-32.0); POTASSIUM 3.8 MEQ/L (3.5-5.1)
[2016-07-07] MEDS ORDERED: SODIUM CHLORIDE 0.9% FLUSH 5 ML FLUSH IVF PRN (11:00)
[2016-07-07] MEDS ORDERED: Post-op Orders (for Pharmacy) MISC XX ONE (11:00)
[2016-07-07] MEDS ORDERED: MORPHINE SULFATE 4 MG/ML INJ IV PUSH PRN (11:00)
[2016-07-07] MEDS ORDERED: diphenhydrAMINE HCL 25 MG CAP PO PRN (11:00)
--- NOTE | 2016-07-07 11:03 | PD.OP ---
cc: Riley Sinha MD Operative Report Date of Surgery: Jul 07, 2016 Preoperative Diagnosis: Comminuted left distal tibia and fibula fractures Postoperative Diagnosis: Same Procedure: Open reduction internal fixation left distal tibia Anesthesia: Gen. Surgeon: Riley Sinha Tassel Clipper(s): Mazin Galeana PA-C The surgical procedure was assisted by my physician assistant controller. My P.A. presence was necessary throughout this case for the manipulation and positioning of the surgical extremity. My P.A. was assisting me throughout the duration of this procedure. The skill set of a physician assistant controller was medically necessary to complete this procedure. During the surgical case the assembler surgical garment was working at the back table and the physician assistant controller was directly assisting me. Operation and Findings: Informed consent was obtained for open reduction and internal fixation of distal tibia fracture. Soft tissue was evaluated preoperatively and found to be suitable for surgery. Patient was brought to the operating placed on operating room table. Patient was given IV sedation and general anesthesia. Timeout procedure was performed, and IV antibiotics were given prior to procedure. The operative leg was now prepped with alcohol followed by Hibiclens and draped usual sterile fashion. A 3 inch incision was now made over the medial aspect of the ankle. Saphenous vein was protected. A full thickness flap was now elevated. The distal medial tibia was now exposed. Attention was now turned towards reduction. The metaphyseal fragments were reduced first. Traction was applied and fracture fragments were manipulated. There were multiple metaphyseal fragments. These were manipulated in excellent reduction was achieved. Fracture tenaculums were used to reduce fractures. Multiple K wires were used to hold provisional fixation. Fluoroscopy confirmed excellent alignment of fractures. A Synthes medial distal tibial plate was selected. Plate was placed percutaneously along the medial aspect of the distal tibia. Plate was provisionally held to bone with K wires. 2.7 cortical screws and 3.5 cortical screws were used to compress plate to bone. Multiple screws were placed into the shaft. Multiple 2.7 locking screws were placed into the distal segment. All screws were predrilled and premeasured for appropriate lengths. Final fluoroscopy revealed well aligned fracture with well-placed hardware. The wound was now thoroughly irrigated. Subcutaneous tissues closed with 3-0 Vicryl and skin was closed with 3-0 nylon. Sterile dressings were applied with Xeroform 4 x 4's soft roll and a well-padded splint.. Needle and sponge counts were correct. Patient was transferred to recovery room in stable condition. Riley Sinha MD Jul 07, 2016 11:03
[2016-07-07 11:30] VITALS: O2SAT 96
--- NOTE | 2016-07-07 11:34 | MB ---
cc: RUPA FREY DATE OF ADMISSION 07/06/2016 DATE OF CONSULTATION 07/07/2016 REASON FOR CONSULTATION Comminuted left distal tibia and fibula fractures. CONSULTING PHYSICIAN Dr. Elina Aguilar. HISTORY Evon is an 80-year-old female who has a history of dementia, hypothyroidism and chronic back pain. The patient is a poor historian and is unable to give significant history. She was found sitting on the floor. She most likely fell. She was unable to stand or ambulate. She lives with a roommate. She normally uses a walker but sometimes forgets to do so. She presented to the emergency room where x-rays revealed a left distal tibia and fibula fracture. She is currently awake but confused on the orthopedic floor. She complains of left leg pain. The pain is worse with movement. PAST MEDICAL HISTORY ILLNESSES 1. Hypothyroidism. 2. Chronic back pain. 3. Early dementia. SURGERIES 1. Right knee replacement. 2. Cervical spine surgery. 3. Hysterectomy. MEDICATIONS Please see EMR for a complete list of inpatient medications. This was reviewed. ALLERGIES No known drug allergies. FAMILY HISTORY Positive for lung cancer in her mother and in her father. SOCIAL HISTORY The patient does not smoke, drink or use drugs. REVIEW OF SYSTEMS Unreliable secondary to dementia. PHYSICAL EXAMINATION GENERAL: The patient is a pleasant 80-year-old female who is awake but confused. She appears well-developed, well-nourished. VITAL SIGNS: Temperature 100.0, pulse 96, respirations 18, blood pressure 151/79, O2 sat 99% on room air. HEAD: The patient is normocephalic. Pupils are equal. NECK: Soft, nontender. Trachea is midline. ABDOMEN: Soft, nontender, nondistended. EXTREMITIES: Examination of the bilateral upper extremities reveals no pain with shoulder, elbow or wrist motion. She has good capillary refill in her fingers. Radial pulses are palpable. Skin is intact in all fingers. Examination of the right leg reveals no pain or deformity with hip, knee or ankle motion. Skin is intact. Sensation is intact. She has good capillary refill in her toes. Examination of the left leg reveals no tenderness in her hip or knee. She is diffusely tender around her distal tibia and ankle. She has pain with any ankle motion. Skin is intact. She has mild swelling of the ankle. Calf compartments are soft. Sensation is intact in the left foot. X-RAYS X-rays of left tibia were reviewed. X-rays reveal a mildly comminuted, mildly displaced left distal tibia and fibula fractures. IMPRESSION 1. Early dementia. 2. Hypertension. 3. Hypothyroidism. 4. Osteoporosis. 5. Displaced left distal tibia and fibula fractures. PLAN The treatment options were discussed with the patient and I will attempt to contact family as well. The patient will need open reduction, internal fixation of left distal tibia versus possible intramedullary nail fixation of left tibia. The risks of surgery include bleeding, infection, injury to ateries, nerves and blood vessels, nonunion, malunion, painful hardware, wound complications, infection as well as medical complications including blood clot, stroke, heart attack and . All questions were answered. I will plan on surgery today. A mid-level provider in my office, nurse practitioner or PA, may see this patient on a follow-up basis and continue to implement the objective of this plan including: Starting or adjusting medications, injections of muscle, tendon, bursa or joints, cast application, orthotic or brace application, physical therapy, further radiographic studies including x-ray, MRI, CT, ultrasounds or bone scan, vascular studies, neurologic studies, or other specialist consultations, and proceeding with surgical management as appropriate. MD SIVA Be/MARNIE /11:07 AM /11:22 AM
[2016-07-07] MEDS ORDERED: fentaNYL CITRATE 250 MCG/5 ML AMP ONE (11:41)
[2016-07-07] MEDS ORDERED: SODIUM CHLOR 0.9% 250 ML INJ 250 ML IV ONE (12:00)
[2016-07-07] MEDS ORDERED: LACTATED RINGER'S 1000 ML INJ 1,000 ML IV ONE (12:00)
[2016-07-07] MEDS ORDERED: PROPOFOL 200 MG/20 ML AMP IV ONE (12:00)
[2016-07-07] MEDS ORDERED: ONDANSETRON HCL 4 MG/2 ML VIAL IV PUSH ONE (12:00)
[2016-07-07] MEDS ORDERED: PHENYLEPH/NS 1000 MCG/10 ML SYR IV ONE (12:00)
[2016-07-07] MEDS ORDERED: ePHEDrine/NS 25 MG/5 ML SYR IV ONE (12:00)
[2016-07-07] MEDS: ceFAZolin 2 GM PREMIX 50 ML IV SCH ×2 (12:32→21:08)
[2016-07-07] MEDS: CALCIUM/VITAMIN D 250 MG/125 U TAB PO SCH ×2 (13:00→17:32)
[2016-07-07] MEDS ORDERED: DO NOT ADM ANY ANTICOAGULANT DRUGS PRN (13:30)
--- NOTE | 2016-07-07 16:04 | RADRPT ---
EXAM DATE/TIME: 07/07/2016 09:51 [place] COMPARISON: FLUOROSCOPY PORTABLE UP TO 1HR, July 07, 2016, 0:00. INDICATIONS : Left tibia fracture repair. OR. MEDICAL HISTORY : None. SURGICAL HISTORY : None. ENCOUNTER: Initial ACUITY: 1 day PAIN SCORE: Non-responsive. LOCATION: Left distal tib/fib FINDINGS: Intraoperative film demonstrates plating of the patient's distal tibial fracture. The alignment post plating is good. Note is made of a moderately displaced fibular fracture as well. CONCLUSION: 1. Good alignment of the tibial fracture post plating. 2. Displaced fibular fracture. Boyd Soares MD on July 07, 2016 at 16:00 Board Certified Radiologist. This report was verified electronically.
[2016-07-07 17:04] VITALS: BP 125/62; PULSE 104; RESP 16; TEMP 98.9; O2SAT 96
--- NOTE | 2016-07-07 17:06 | EKG ---
Date Performed: 07/07/2016 Time Performed: 05:52:40 PTAGE: 80 years EKG: Sinus tachycardia. Baseline artifact When compared to prior tracing patient is now tachycar dic. Normal ECG except for rate PREVIOUS TRACING : 06/27/2016 12.41 DOCTOR: Ramona Khoury Interpretating Date/Time 07/07/2016 17:06:20
--- NOTE | 2016-07-07 18:51 | HHI.PR ---
Subjective Remarks Pt evaluated earlier today. she was eating dinner and family members at bedside. pain controlled at that time. No complaints of CP/SOB/N/V Pt keeps eyes closed but does answer w yes or no Objective Vitals Vital Signs Date Time Temp Pulse Resp B/P Pulse Ox O2 Delivery O2 Flow Rate FiO2 07/07/16 17:04 98.9 104 16 125/62 96 07/07/16 13:30 Nasal Cannula 07/07/16 12:30 97.9 70 16 143/76 95 Nasal Cannula 3 07/07/16 12:00 77 16 156/82 95 Nasal Cannula 3 07/07/16 11:45 82 15 170/90 95 Nasal Cannula 3 07/07/16 11:30 97.9 102 15 150/90 96 Nasal Cannula 3 07/07/16 08:00 100.0 96 18 151/79 99 07/07/16 07:40 Room Air 07/07/16 06:45 98.8 97 18 154/78 99 07/06/16 23:50 96.0 74 19 123/70 98 07/06/16 20:45 96.1 94 16 147/78 98 07/06/16 20:00 98.9 76 16 159/74 96 I/O 07/06/16 07/06/16 07/06/16 07/07/16 07/07/16 07/07/16 07:00 15:00 23:00 07:00 15:00 23:00 Intake Total 0 ml 1420 ml Output Total 75 ml Balance 0 ml 1345 ml Intake Oral 0 ml 120 ml IV Total 100 ml Other 1200 ml Output Estimated Blood Loss 75 ml # Voids 3 4 # Bowel Movements 0 0 Result Diagram: 07/06/16 1345 07/07/16 0746 Imaging Last Impressions Tibia/Fibula X-Ray 07/07/16 0000 Signed Impressions: Service Date/Time: Thursday, July 07, 2016 09:51 - CONCLUSION: 1. Good alignment of the tibial fracture post plating. 2. Displaced fibular fracture. Boyd Soares MD Ankle X-Ray 07/06/16 0000 Signed Impressions: Service Date/Time: Wednesday, July 06, 2016 14:12 - CONCLUSION: 1. Osteoporotic. 2. Fractures of the distal tibia and fibula. Devan Soares MD FACR Objective Remarks GENERAL: This is an AA patient, eating jello CARDIOVASCULAR: Regular rate and rhythm without murmurs RESPIRATORY: Clear to auscultation. Breath sounds equal bilaterally. No wheezes GASTROINTESTINAL: Abdomen soft, non-tender, nondistended. No masses. No guarding. MUSCULOSKELETAL: Extremities with 1+ edema bilaterally. dressing over left lower extremity d/c/i. No calf tenderness NEUROLOGICAL: pt w Dementia A/P Assessment and Plan Distal tib/fib fx: pod#1 s/p Open reduction internal fixation left distal tibia. Pain mgt, rehab and anticoag/abx per ortho. Dementia: stable per family Pt is supposed to use a 4-point walker but isn't compliant per family. PT/Rehab/ anticoag per ortho recs Per RN, pt had an odor and is incontinent. U/A neg x 24 hrs.afebrile. DVT proph: lovenox Discharge Planning when cleared by ortho Elina Aguilar MD Jul 07, 2016 18:51
[2016-07-07 20:00] VITALS: PULSE 81
[2016-07-07 20:29] VITALS: BP 130/68; PULSE 96; RESP 18; TEMP 98.8; O2SAT 98
[2016-07-07] MEDS: LACTATED RINGER'S 1000 ML INJ 1,000 ML IV SCH ×2 (20:57→23:45)
[2016-07-07] MEDS: SODIUM CHLORIDE 0.9% FLUSH 5 ML FLUSH IVF SCH (21:00)
[2016-07-08] VITALS (9 sets, daily range): BP systolic 97–137; BP diastolic 50–77; PULSE 87–99; RESP 16–18; TEMP 96.8–99.4; O2SAT 95–100
[2016-07-08] MEDS: ceFAZolin 2 GM PREMIX 50 ML IV SCH ×2 (04:42→12:14)
--- NOTE | 2016-07-08 06:42 | PD.ORT.PN ---
Subjective Subjective Remarks POD 1 s/p ORIF left distal tibia fx doing well. pain controlled. no complaints. Objective Vitals Vital Signs Date Time Temp Pulse Resp B/P Pulse Ox O2 Delivery O2 Flow Rate FiO2 07/08/16 03:50 98.0 91 17 135/62 97 07/08/16 00:15 98.7 88 17 135/60 100 07/07/16 20:29 98.8 96 18 130/68 98 07/07/16 20:00 100 Nasal Cannula 2.00 07/07/16 20:00 81 07/07/16 17:04 98.9 104 16 125/62 96 07/07/16 13:30 Nasal Cannula 07/07/16 12:30 97.9 70 16 143/76 95 Nasal Cannula 3 07/07/16 12:00 77 16 156/82 95 Nasal Cannula 3 07/07/16 11:45 82 15 170/90 95 Nasal Cannula 3 07/07/16 11:30 97.9 102 15 150/90 96 Nasal Cannula 3 07/07/16 08:00 100.0 96 18 151/79 99 07/07/16 07:40 Room Air 07/07/16 06:45 98.8 97 18 154/78 99 I/O 07/07/16 07/07/16 07/07/16 07/08/16 07/08/16 07/08/16 07:00 15:00 23:00 07:00 15:00 23:00 Intake Total 0 ml 1420 ml 430 ml Output Total 75 ml Balance 0 ml 1345 ml 430 ml Intake Oral 0 ml 120 ml 120 ml IV Total 100 ml 310 ml Other 1200 ml Output Estimated Blood Loss 75 ml # Voids 3 4 2 # Bowel Movements 0 0 0 Result Diagram: 07/06/16 1345 07/07/16 0746 Imaging Last 72 hours Impressions Tibia/Fibula X-Ray 07/06/16 0000 Signed Impressions: Service Date/Time: Wednesday, July 06, 2016 15:24 - CONCLUSION: Interval casting of tib-fib fractures Julio Cesar Rodriguez MD Tibia/Fibula X-Ray 07/06/16 0000 Signed Impressions: Service Date/Time: Wednesday, July 06, 2016 14:11 - CONCLUSION: 1. Fractures as described above. 2. Bones are diffusely osteoporotic. Devan Soares MD FACR Ankle X-Ray 07/06/16 0000 Signed Impressions: Service Date/Time: Wednesday, July 06, 2016 14:12 - CONCLUSION: 1. Osteoporotic. 2. Fractures of the distal tibia and fibula. Devan Soares MD FACR Objective Remarks LLE: dressings clean and dry. intact. +short leg splint. NVI. Assessment & Plan Assessment and Plan 1) Left distal tibia and fibula shaft fractures s/p ORIF - POD 1 -NWB -maintain splint at all times -elevate -DVT prophylaxis with lovenox. Xarelto on Discharge -CM for rehab placement -f/u with Dr Dowell or PA in 2 weeks Ashwin Mishra Jul 08, 2016 06:42
[2016-07-08] MEDS ORDERED: CALCTAB19 PO (06:45)
[2016-07-08] MEDS ORDERED: ERGO1CAP30 PO (06:45)
[2016-07-08] MEDS ORDERED: HYDR-3288 PO (06:45)
[2016-07-08] MEDS ORDERED: WALKER/ADULT/FO1 MIS (06:45)
[2016-07-08] MEDS ORDERED: VITA2000 PO (06:45)
[2016-07-08] MEDS ORDERED: WHEEMIS3 (06:45)
[2016-07-08] MEDS ORDERED: XARE10TA PO (06:45)
[2016-07-08] MEDS: LACTATED RINGER'S 1000 ML INJ 1,000 ML IV SCH ×3 (06:57→23:45)
[2016-07-08 07:14] LABS: HEMATOCRIT 27.1 % (35.0-46.0); REVIEW FLAG FINAL
[2016-07-08] MEDS: SODIUM CHLORIDE 0.9% FLUSH 5 ML FLUSH IVF SCH ×2 (09:00→20:16)
[2016-07-08] MEDS: SODIUM CHLORIDE 0.9% FLUSH 10 ML FLUSH IV FLUSH SCH ×2 (09:00→20:16)
[2016-07-08] MEDS: SODIUM CHLOR 0.9% 1000 ML INJ 1,000 ML IV SCH ×2 (09:00→22:20)
[2016-07-08] MEDS: CALCIUM/VITAMIN D 250 MG/125 U TAB PO SCH ×3 (09:51→18:01)
[2016-07-08] MEDS: CHOLECALCIFEROL (VIT D3) 1000 UNIT TAB PO SCH (09:51)
[2016-07-08] MEDS: VANCOMYCIN INJ 1,000 MG in SODIUM CHLOR 0.9% 250 ML INJ 250 ML IV SCH (09:52)
[2016-07-08] MEDS: ENOXAPARIN SODIUM 30 MG/0.3 ML SYRINGE SQ SCH (09:52)
--- NOTE | 2016-07-08 11:17 | HHI.PR ---
Subjective Remarks Pt has no complaints, pain is controlled. denies any burning w urination, no nausea or vomiting Objective Vitals Vital Signs Date Time Temp Pulse Resp B/P Pulse Ox O2 Delivery O2 Flow Rate FiO2 07/08/16 08:00 97.7 99 18 137/77 98 07/08/16 06:23 98 Nasal Cannula 2.00 07/08/16 03:50 98.0 91 17 135/62 97 07/08/16 00:15 98.7 88 17 135/60 100 07/07/16 20:29 98.8 96 18 130/68 98 07/07/16 20:00 100 Nasal Cannula 2.00 07/07/16 20:00 81 07/07/16 17:04 98.9 104 16 125/62 96 07/07/16 13:30 Nasal Cannula 07/07/16 12:30 97.9 70 16 143/76 95 Nasal Cannula 3 07/07/16 12:00 77 16 156/82 95 Nasal Cannula 3 07/07/16 11:45 82 15 170/90 95 Nasal Cannula 3 07/07/16 11:30 97.9 102 15 150/90 96 Nasal Cannula 3 I/O 07/07/16 07/07/16 07/07/16 07/08/16 07/08/16 07/08/16 07:00 15:00 23:00 07:00 15:00 23:00 Intake Total 0 ml 1420 ml 430 ml 247 ml 120 ml Output Total 75 ml Balance 0 ml 1345 ml 430 ml 247 ml 120 ml Intake Oral 0 ml 120 ml 120 ml 120 ml IV Total 100 ml 310 ml 247 ml Other 1200 ml Output Estimated Blood Loss 75 ml # Voids 3 4 2 5 # Bowel Movements 0 0 0 0 Result Diagram: 07/08/16 0548 07/07/16 0746 Imaging Last Impressions Tibia/Fibula X-Ray 07/07/16 0000 Signed Impressions: Service Date/Time: Thursday, July 07, 2016 09:51 - CONCLUSION: 1. Good alignment of the tibial fracture post plating. 2. Displaced fibular fracture. Boyd Soares MD Ankle X-Ray 07/06/16 0000 Signed Impressions: Service Date/Time: Wednesday, July 06, 2016 14:12 - CONCLUSION: 1. Osteoporotic. 2. Fractures of the distal tibia and fibula. Devan Soares MD FACR Objective Remarks GENERAL: This is an AA patient sitting up on recliner CARDIOVASCULAR: Regular rate and rhythm without murmurs RESPIRATORY: Clear to auscultation. Breath sounds equal bilaterally. No wheezes GASTROINTESTINAL: Abdomen soft, non-tender, nondistended. No masses. No guarding. MUSCULOSKELETAL: Extremities with 1+ edema bilaterally. dressing over left lower extremity d/c/i. No calf tenderness NEUROLOGICAL: pt w Dementia A/P Assessment and Plan Distal tib/fib fx: pod#1 s/p Open reduction internal fixation left distal tibia. Pain mgt, rehab and anticoag/abx per ortho. Dementia: stable per family Pt is supposed to use a 4-point walker but isn't compliant per family. PT/Rehab/ anticoag per ortho recs Per RN, pt had an odor and is incontinent. U/A not too convincing for UTI however, urine cx growing staph aureus w <10,000 count. Pt is asymptomatic and specimen is not a straight cath, at this time, this most likely colonization. will monitor clinically for now. DVT proph: lovenox Discharge Planning when cleared by ortho Elina Aguilar MD Jul 08, 2016 11:17
[2016-07-08] MEDS: ACETAMINOPHEN/HYDROcodone 325 MG/7.5 MG TAB PO PRN ×2 (15:45→21:09)
[2016-07-09] VITALS (7 sets, daily range): BP systolic 106–129; BP diastolic 58–62; PULSE 72–83; RESP 16–18; TEMP 96.9–98.4; O2SAT 95–99
[2016-07-09] MEDS: LACTATED RINGER'S 1000 ML INJ 1,000 ML IV SCH ×3 (02:57→22:38)
[2016-07-09] MEDS: ACETAMINOPHEN/HYDROcodone 325 MG/7.5 MG TAB PO PRN (05:24)
--- NOTE | 2016-07-09 06:38 | PD.ORT.PN ---
Subjective Subjective Remarks POD 2 s/p ORIF left distal tibia fx doing well. pain controlled. no complaints. Objective Vitals Vital Signs Date Time Temp Pulse Resp B/P Pulse Ox O2 Delivery O2 Flow Rate FiO2 07/09/16 04:10 98.4 72 16 117/58 97 07/09/16 00:30 97.0 83 16 127/60 96 07/08/16 20:00 89 07/08/16 20:00 95 Nasal Cannula 2.00 07/08/16 19:30 96.9 89 16 118/60 95 07/08/16 16:10 99.4 92 16 97/50 95 07/08/16 12:00 96.8 91 18 122/58 96 07/08/16 08:00 97.7 99 18 137/77 98 I/O 07/08/16 07/08/16 07/08/16 07/09/16 07/09/16 07/09/16 07:00 15:00 23:00 07:00 15:00 23:00 Intake Total 247 ml 720 ml 120 ml Balance 247 ml 720 ml 120 ml Intake Oral 720 ml 120 ml IV Total 247 ml # Voids 8 3 # Bowel Movements 0 0 Result Diagram: 07/08/16 0548 07/07/16 0746 Imaging Last 72 hours Impressions Tibia/Fibula X-Ray 07/06/16 0000 Signed Impressions: Service Date/Time: Wednesday, July 06, 2016 15:24 - CONCLUSION: Interval casting of tib-fib fractures Julio Cesar Rodriguez MD Tibia/Fibula X-Ray 07/06/16 0000 Signed Impressions: Service Date/Time: Wednesday, July 06, 2016 14:11 - CONCLUSION: 1. Fractures as described above. 2. Bones are diffusely osteoporotic. Devan Soares MD FACR Ankle X-Ray 07/06/16 0000 Signed Impressions: Service Date/Time: Wednesday, July 06, 2016 14:12 - CONCLUSION: 1. Osteoporotic. 2. Fractures of the distal tibia and fibula. Devan Soares MD FACR Objective Remarks LLE: dressings clean and dry. intact. +short leg splint. NVI. Assessment & Plan Assessment and Plan 1) Left distal tibia and fibula shaft fractures s/p ORIF - POD 2 -NWB -maintain splint at all times -elevate -DVT prophylaxis with lovenox. Xarelto on Discharge -CM for rehab placement -f/u with Dr Dowell or PA in 2 weeks Ashwin Mishra Jul 09, 2016 06:38
[2016-07-09] MEDS: SODIUM CHLORIDE 0.9% FLUSH 5 ML FLUSH IVF SCH ×2 (09:00→21:00)
[2016-07-09] MEDS: CALCIUM/VITAMIN D 250 MG/125 U TAB PO SCH ×3 (10:10→17:11)
[2016-07-09] MEDS: CHOLECALCIFEROL (VIT D3) 1000 UNIT TAB PO SCH (10:10)
[2016-07-09] MEDS: VANCOMYCIN INJ 1,000 MG in SODIUM CHLOR 0.9% 250 ML INJ 250 ML IV SCH (10:10)
[2016-07-09] MEDS: SODIUM CHLORIDE 0.9% FLUSH 10 ML FLUSH IV FLUSH SCH ×2 (10:12→22:37)
[2016-07-09] MEDS: ENOXAPARIN SODIUM 30 MG/0.3 ML SYRINGE SQ SCH (11:34)
[2016-07-09] MEDS: SODIUM CHLOR 0.9% 1000 ML INJ 1,000 ML IV SCH ×2 (11:40→22:38)
[2016-07-09] MEDS: DOCUSATE SODIUM 50 MG/SENNA 8.6 MG TAB PO PRN (12:02)
[2016-07-09] MEDS ORDERED: MELO-1 PO (14:13)
[2016-07-09] MEDS ORDERED: TRAZ50TA12 PO (14:16)
[2016-07-09] MEDS ORDERED: CYAN1000P SQ (14:16)
[2016-07-09] MEDS ORDERED: MAGNESIUM HYDROXIDE SUSP 30 ML CUP PO PRN (14:30)
--- NOTE | 2016-07-09 21:08 | HHI.PR ---
Subjective Remarks Pt evaluated around 4:30pm. Pt was eating dinner. Family at bedside Denies any pain, CP/SOB/N/V. has no complaints. Objective Vitals Vital Signs Date Time Temp Pulse Resp B/P Pulse Ox O2 Delivery O2 Flow Rate FiO2 07/09/16 20:19 97.4 77 17 113/58 99 07/09/16 15:30 96.9 80 16 116/58 95 07/09/16 11:59 97.6 74 18 129/62 95 07/09/16 08:00 97.4 79 17 106/59 95 07/09/16 04:10 98.4 72 16 117/58 97 07/09/16 00:30 97.0 83 16 127/60 96 I/O 07/08/16 07/08/16 07/08/16 07/09/16 07/09/16 07/09/16 07:00 15:00 23:00 07:00 15:00 23:00 Intake Total 247 ml 720 ml 120 ml 120 ml 600 ml 240 ml Balance 247 ml 720 ml 120 ml 120 ml 600 ml 240 ml Intake Oral 720 ml 120 ml 120 ml 600 ml 240 ml IV Total 247 ml # Voids 8 3 5 3 # Bowel Movements 0 0 0 Result Diagram: 07/08/16 0548 07/07/16 0746 Imaging Last Impressions Tibia/Fibula X-Ray 07/07/16 0000 Signed Impressions: Service Date/Time: Thursday, July 07, 2016 09:51 - CONCLUSION: 1. Good alignment of the tibial fracture post plating. 2. Displaced fibular fracture. Boyd Soares MD Ankle X-Ray 07/06/16 0000 Signed Impressions: Service Date/Time: Wednesday, July 06, 2016 14:12 - CONCLUSION: 1. Osteoporotic. 2. Fractures of the distal tibia and fibula. Devan Soares MD FACR Objective Remarks GENERAL: This is an AA patient sitting up on recliner CARDIOVASCULAR: Regular rate and rhythm without murmurs RESPIRATORY: Clear to auscultation. Breath sounds equal bilaterally. No wheezes MUSCULOSKELETAL: Extremities with 1+ edema bilaterally. dressing over left lower extremity d/c/i. No calf tenderness NEUROLOGICAL: pt w Dementia A/P Assessment and Plan Distal tib/fib fx: pod#2 s/p Open reduction internal fixation left distal tibia. Pain mgt, rehab and anticoag/abx per ortho. Recs are to be NWB on that extremity and maintain splint at all times and elevate Dementia: stable per family Pt is supposed to use a 4-point walker but isn't compliant per family. Per RN, pt had an odor and is incontinent. U/A not too convincing for UTI however, urine cx growing staph aureus w <10,000 count. Pt is asymptomatic and specimen is not a straight cath, at this time, this most likely colonization. will monitor clinically for now. DVT proph: lovenox Discharge Planning when cleared by Elina Montano MD Jul 09, 2016 21:08
[2016-07-09] MEDS: traZODone HCL 50 MG TAB PO SCH (22:37)
[2016-07-10] VITALS (7 sets, daily range): BP systolic 115–139; BP diastolic 55–77; PULSE 80–100; RESP 16–18; TEMP 96.9–99.5; O2SAT 95–100
--- NOTE | 2016-07-10 06:41 | PD.ORT.PN ---
Subjective Subjective Remarks POD 3 s/p ORIF left distal tibia fx doing well. pain controlled. no complaints. Objective Vitals Vital Signs Date Time Temp Pulse Resp B/P Pulse Ox O2 Delivery O2 Flow Rate FiO2 07/10/16 04:00 99.5 87 16 139/72 100 07/10/16 00:00 97.9 87 16 131/77 95 07/09/16 20:19 97.4 77 17 113/58 99 07/09/16 20:15 82 07/09/16 18:56 Room Air 07/09/16 15:30 96.9 80 16 116/58 95 07/09/16 11:59 97.6 74 18 129/62 95 07/09/16 08:00 97.4 79 17 106/59 95 I/O 07/09/16 07/09/16 07/09/16 07/10/16 07/10/16 07/10/16 07:00 15:00 23:00 07:00 15:00 23:00 Intake Total 120 ml 600 ml 720 ml 240 ml Balance 120 ml 600 ml 720 ml 240 ml Intake Oral 120 ml 600 ml 720 ml 240 ml # Voids 5 3 2 2 # Bowel Movements 0 Result Diagram: 07/08/16 0548 07/07/16 0746 Imaging Last 72 hours Impressions Tibia/Fibula X-Ray 07/06/16 0000 Signed Impressions: Service Date/Time: Wednesday, July 06, 2016 15:24 - CONCLUSION: Interval casting of tib-fib fractures Julio Cesar Rodriguez MD Tibia/Fibula X-Ray 07/06/16 0000 Signed Impressions: Service Date/Time: Wednesday, July 06, 2016 14:11 - CONCLUSION: 1. Fractures as described above. 2. Bones are diffusely osteoporotic. Devan Soares MD FACR Ankle X-Ray 07/06/16 0000 Signed Impressions: Service Date/Time: Wednesday, July 06, 2016 14:12 - CONCLUSION: 1. Osteoporotic. 2. Fractures of the distal tibia and fibula. Devan Soares MD FACR Objective Remarks LLE: dressings clean and dry. intact. +short leg splint. NVI. Assessment & Plan Assessment and Plan 1) Left distal tibia and fibula shaft fractures s/p ORIF - POD 3 -NWB -maintain splint at all times -elevate -DVT prophylaxis with lovenox. Xarelto on Discharge -CM for rehab placement -ortho clear for DC -f/u with Dr Dowell or PA in 2 weeks Ashwin Mishra Jul 10, 2016 06:41
[2016-07-10] MEDS: SODIUM CHLORIDE 0.9% FLUSH 5 ML FLUSH IVF SCH ×2 (09:00→21:00)
[2016-07-10] MEDS: SODIUM CHLORIDE 0.9% FLUSH 10 ML FLUSH IV FLUSH SCH ×2 (09:00→21:26)
[2016-07-10] MEDS: CHOLECALCIFEROL (VIT D3) 1000 UNIT TAB PO SCH (09:57)
[2016-07-10] MEDS: CALCIUM/VITAMIN D 250 MG/125 U TAB PO SCH ×3 (09:57→17:24)
[2016-07-10] MEDS: POLYETHYLENE GLYCOL 17 GM PKG PO SCH (09:57)
[2016-07-10] MEDS: LACTATED RINGER'S 1000 ML INJ 1,000 ML IV SCH ×3 (10:01→21:30)
[2016-07-10] MEDS: ENOXAPARIN SODIUM 30 MG/0.3 ML SYRINGE SQ SCH (11:00)
[2016-07-10] MEDS ORDERED: CEFU1TAB20 PO (12:01)
--- NOTE | 2016-07-10 12:02 | HHI.DS ---
Discharge Summary Admission Date Jul 06, 2016 at 15:35 Discharge Date: Jul 11, 2016 Admitting Diagnosis TIB-FIB FRACTURE (1) Tibia/fibula fracture ICD Code: S82.209A (2) Dementia ICD Code: F03.90 (3) UTI (urinary tract infection) ICD Code: N39.0 Procedures ORIF of left tib-fib fracture Brief History - From Admission 80 yr old AA female w PMHx of dementia, leg edema - Dementia, ? hypothyroidism, chronic back pain presented to ED w left lower extremity pain. Granddaughter and daughter at bedside. Patient has a history of dementia and is a poor historian. She is currently sedated from the morphine. Per Granddaughter, patient was found sitting on the floor at the side of the bed. Apparently she had fallen and granddaughter thinks that she might have hit the drawer of the dresser. There was no LOC.apparently she was trying to pull up her briefs when she lost her balance and hit the dresser. Pt lives w a roomate. She is supposed to use a 4 point walker but apparently pt doesn't do so. Grandaughter denies any hx of heart disease.She does take Lasix at home for lower extremity edema. ECHO done on 03/2015 showed an EF 55-60%. Grand daughter denies pt complaining of any chest pain, SOB, nausea or vomiting when she was found. She mainly had pain when the EMS moved her which was excrutiating. At this time, pt is sleeping and will barely talk to me as she received morphine. CBC/BMP: 07/08/16 0548 07/07/16 0746 Significant Findings Laboratory Tests Test 07/08/16 05:48 Hemoglobin 9.0 GM/DL (11.6-15.3) Hematocrit 27.1 % (35.0-46.0) Imaging Last Impressions Tibia/Fibula X-Ray 07/07/16 0000 Signed Impressions: Service Date/Time: Thursday, July 07, 2016 09:51 - CONCLUSION: 1. Good alignment of the tibial fracture post plating. 2. Displaced fibular fracture. Boyd Soares MD Ankle X-Ray 07/06/16 0000 Signed Impressions: Service Date/Time: Wednesday, July 06, 2016 14:12 - CONCLUSION: 1. Osteoporotic. 2. Fractures of the distal tibia and fibula. Devan Soares MD FACR PE at Discharge GENERAL: This is an AA patient sitting up on recliner CARDIOVASCULAR: Regular rate and rhythm without murmurs RESPIRATORY: Clear to auscultation. Breath sounds equal bilaterally. No wheezes MUSCULOSKELETAL: Extremities with 1+ edema bilaterally. dressing over left lower extremity d/c/i. No calf tenderness NEUROLOGICAL: pt w Dementia Pt update on day of discharge Patient reports she is feeling okay. Pleasantly demented. Pain is controlled. Hospital Course 80-year-old female with tib-fib fracture after a mechanical fall. Apparently the patient is supposed to use a 4-point walker but isn't compliant with that per family. She sustained a fall which resulted in the fractures. The patient was admitted and underwent ORIF by orthopedic surgery. She is discharged to alf facility for rehabilitation. The patient's dementia remain at baseline during this hospitalization. Urine culture grew staph aureus. The patient is asymptomatic but given her dementia she may not be able to convey symptoms. She is to continue treatment with cefuroxime outpatient. Patient to follow-up with orthopedics outpatient. She was discharged on Xarelto for DVT prophylaxis. Pt Condition on Discharge: Stable Discharge Disposition: Discharge to SNF Discharge Time: > 30 minutes Discharge Instructions DIET: Follow Instructions for: As Tolerated, No Restrictions Activities you can perform: See Additionl Instruction Other Activity Instructions: Per PT instructions. Follow up Referrals: Orthopedics - 2 Weeks @ [facility] with Riley Dowell MD New Medications: Calcium Carbonate-Vitamin D (Calcium 600+D 200) 600-200 Mg-Unit Tab 1 TAB PO BID Nutritional Supplement Days 30 Ref 0 TAB Cefuroxime (Cefuroxime) 500 Mg Tab 500 MG PO BID Infection #14 Ref 0 TAB Cholecalciferol (Vitamin D3) 2,000 Unit Cap 2000 UNITS PO DAILY Nutritional Supplement #56 Ref 0 CAP Ergocalciferol (Ergocalciferol) 50,000 Unit Cap 37186 UNITS PO Q7D Nutritional Supplement #56 CAP Hydrocodone-Acetaminophen ([place]) 7.5-325 mg Tab 1 TAB PO Q4H PRN PAIN #60 Ref 0 TAB Rivaroxaban (Xarelto) 10 Mg Tab 10 MG PO DAILY Blood Clot Prevention #21 Ref 0 TAB Walker/Adult/Folding (Walker/Adult/Folding) 1 Mis Mis 1 EA .ROUTE DIRECTED #1 Ref 0 EA Wheelchair Elevated Leg (Wheelchair Elevated Leg) 1 Mis Mis 1 EA .ROUTE DIRECTED #1 Ref 0 EA Continued Medications: Cyanocobalamin Inj (Cyanocobalamin Inj) 1,000 Mcg/Ml Inj 1000 MCG SQ Q30D NEB #1 Ref 0 VIAL Meloxicam (Meloxicam) 15 Mg Tab 15 MG PO DAILY Arthritis Pain #30 Ref 0 TAB Trazodone (Trazodone) 50 Mg Tab 50 MG PO HS Control Depression #30 Ref 0 TAB Richie Avalos MD Jul 10, 2016 12:02
[2016-07-10] MEDS: SODIUM CHLOR 0.9% 1000 ML INJ 1,000 ML IV SCH ×2 (14:20→21:30)
[2016-07-10] MEDS: ACETAMINOPHEN/HYDROcodone 325 MG/7.5 MG TAB PO PRN (17:24)
[2016-07-10] MEDS: traZODone HCL 50 MG TAB PO SCH (21:23)
[2016-07-10] MEDS: DOCUSATE SODIUM 50 MG/SENNA 8.6 MG TAB PO PRN (21:25)
[2016-07-11] VITALS: BP 115/60; PULSE 78; RESP 16; TEMP 97.9; O2SAT 95
[2016-07-11 04:00] VITALS: BP 119/72; PULSE 83; RESP 17; TEMP 97.2; O2SAT 96
[2016-07-11 08:00] VITALS: BP 121/59; PULSE 89; RESP 16; TEMP 98.2; O2SAT 100
--- NOTE | 2016-07-11 08:20 | PD.ORT.PN ---
Subjective Post Op Day #: 4 Subjective Remarks does not complain of pain. Objective Vitals Vital Signs Date Time Temp Pulse Resp B/P Pulse Ox O2 Delivery O2 Flow Rate FiO2 07/11/16 04:00 97.2 83 17 119/72 96 07/11/16 00:00 97.9 78 16 115/60 95 07/10/16 20:00 96.9 85 18 115/55 99 07/10/16 16:00 98.5 100 17 134/69 97 07/10/16 12:00 97.7 80 18 120/63 98 I/O 07/10/16 07/10/16 07/10/16 07/11/16 07/11/16 07/11/16 07:00 15:00 23:00 07:00 15:00 23:00 Intake Total 430 ml 720 ml 240 ml Balance 430 ml 720 ml 240 ml Intake Oral 240 ml 720 ml 240 ml IV Total 190 ml # Voids 2 5 2 # Bowel Movements 0 Result Diagram: 07/08/16 0548 07/07/16 0746 Imaging Last 72 hours Impressions Tibia/Fibula X-Ray 07/06/16 0000 Signed Impressions: Service Date/Time: Wednesday, July 06, 2016 15:24 - CONCLUSION: Interval casting of tib-fib fractures Julio Cesar Rodriguez MD Tibia/Fibula X-Ray 07/06/16 0000 Signed Impressions: Service Date/Time: Wednesday, July 06, 2016 14:11 - CONCLUSION: 1. Fractures as described above. 2. Bones are diffusely osteoporotic. Devan Soares MD FACR Ankle X-Ray 07/06/16 0000 Signed Impressions: Service Date/Time: Wednesday, July 06, 2016 14:12 - CONCLUSION: 1. Osteoporotic. 2. Fractures of the distal tibia and fibula. Devan Soares MD FACR Objective Remarks LLE: dressings clean and dry. intact. +short leg splint. NVI. Assessment & Plan Assessment and Plan 1) Left distal tibia and fibula shaft fractures s/p ORIF - POD 4 -NWB -maintain splint at all times -elevate -DVT prophylaxis with lovenox. Xarelto on Discharge -CM for rehab placement -ortho clear for DC -f/u with Dr Dowell or PA in 2 weeks Saqib Ayala Jul 11, 2016 08:20
[2016-07-11] MEDS: SODIUM CHLORIDE 0.9% FLUSH 10 ML FLUSH IV FLUSH SCH (09:00)
[2016-07-11] MEDS: SODIUM CHLORIDE 0.9% FLUSH 5 ML FLUSH IVF SCH (09:00)
--- NOTE | 2016-07-11 09:51 | HHI.PR ---
Subjective Remarks Patient reports she is feeling okay. Awaiting insurance authorization for SNF placement. Discussed with RN Objective Vitals Vital Signs Date Time Temp Pulse Resp B/P Pulse Ox O2 Delivery O2 Flow Rate FiO2 07/11/16 04:00 97.2 83 17 119/72 96 07/11/16 00:00 97.9 78 16 115/60 95 07/10/16 22:27 86 07/10/16 20:00 96.9 85 18 115/55 99 07/10/16 19:00 Room Air 07/10/16 16:00 98.5 100 17 134/69 97 07/10/16 12:00 97.7 80 18 120/63 98 I/O 07/10/16 07/10/16 07/10/16 07/11/16 07/11/16 07/11/16 07:00 15:00 23:00 07:00 15:00 23:00 Intake Total 430 ml 720 ml 240 ml Balance 430 ml 720 ml 240 ml Intake Oral 240 ml 720 ml 240 ml IV Total 190 ml # Voids 2 5 2 # Bowel Movements 0 Result Diagram: 07/08/16 0548 07/07/16 0746 Imaging Last Impressions Tibia/Fibula X-Ray 07/07/16 0000 Signed Impressions: Service Date/Time: Thursday, July 07, 2016 09:51 - CONCLUSION: 1. Good alignment of the tibial fracture post plating. 2. Displaced fibular fracture. Boyd Soares MD Ankle X-Ray 07/06/16 0000 Signed Impressions: Service Date/Time: Wednesday, July 06, 2016 14:12 - CONCLUSION: 1. Osteoporotic. 2. Fractures of the distal tibia and fibula. Devan Soares MD FACR Objective Remarks GENERAL: Patient is in no acute distress CARDIOVASCULAR: Regular rate and rhythm without murmurs RESPIRATORY: Clear to auscultation. Breath sounds equal bilaterally. No wheezes MUSCULOSKELETAL: Extremities with 1+ edema bilaterally. Left lower extremity is wrapped in a clean dressing. NEUROLOGICAL: Pleasantly demented A/P Assessment and Plan 80-year-old female with: Distal tib/fib fx: pod#4 s/p Open reduction internal fixation left distal tibia. Pain mgt, rehab and anticoag/abx per ortho. Recs are to be NWB on that extremity and maintain splint at all times and elevate Dementia: stable per family Pt is supposed to use a 4-point walker but isn't compliant per family. UTI: Urine culture grew staph aureus. Patient is asymptomatic but has dementia and may not be able to convey symptoms. We'll treat with cefuroxime. DVT proph: lovenox Discharge Planning Discharge to SNF whenever arrangements to me. Awaiting insurance authorization. Richie Avalos MD Jul 11, 2016 09:51
[2016-07-11] MEDS: CHOLECALCIFEROL (VIT D3) 1000 UNIT TAB PO SCH (10:13)
[2016-07-11] MEDS: POLYETHYLENE GLYCOL 17 GM PKG PO SCH (10:13)
[2016-07-11] MEDS: CALCIUM/VITAMIN D 250 MG/125 U TAB PO SCH ×2 (10:13→12:52)
[2016-07-11] MEDS ORDERED: CEFUROXIME AXETIL 500 MG TAB PO SCH (11:00)
[2016-07-11] MEDS: ENOXAPARIN SODIUM 30 MG/0.3 ML SYRINGE SQ SCH (12:52)
== END 2016-07-11 15:18 | DRG 493 ==
LOC: NEPA 12:37 → NEDA 15:35 → N06B 20:38 → N06A 07-07 14:11
PROVIDERS: ADMIT Family Medicine; ATTEND Family Medicine
PROC: 0QSHXZZ Reposition Left Tibia, External Approach (ICD-10-PCS; 2016-07-06)
PROC: 0QSH04Z Reposition Left Tibia with Internal Fixation Device, Open Approach (ICD-10-PCS; principal; 2016-07-07 09:09)
DX: S82.392A Other fracture of lower end of left tibia, initial encounter for closed fracture (principal); N39.0 Urinary tract infection, site not specified; S82.832A Other fracture of upper and lower end of left fibula, initial encounter for closed fracture; W18.30XA Fall on same level, unspecified, initial encounter; Y92.003 Bedroom of unspecified non-institutional (private) residence as the place of occurrence of the external cause; F03.90 Unspecified dementia, unspecified severity, without behavioral disturbance, psychotic disturbance, mood disturbance, and anxiety; M81.0 Age-related osteoporosis without current pathological fracture; G89.29 Other chronic pain; M54.9 Dorsalgia, unspecified; E03.9 Hypothyroidism, unspecified; R60.0 Localized edema; Z96.651 Presence of right artificial knee joint; R32 Unspecified urinary incontinence; H91.90 Unspecified hearing loss, unspecified ear; I10 Essential (primary) hypertension
CPT/HCPCS: 27840; 73590; 73610; 76000; 80048; 80053; 81001; 83605; 85014; 85018; 85025; 85610; 85730; 86403; 87086; 87147; 87186; 93005; 94150; 96374; 96375; C1713; J0690; J1580; J1650; J2270; J2370; J2405; J3010; J3370; J7030; J7050; J7120